=== PATIENT | female | born 1960 ===

== ENCOUNTER → 2017-11-24 | Outpatient (CLI) | payer BC ==
--- NOTE | 2017-11-25 22:37 | RADIOLOGY REPORT (SQ) ---
EXAM DESCRIPTION: MRI LT LOWER EXTREMITY COMBO COMPLETED DATE/TIME: 11/24/2017 10:20 pm REASON FOR STUDY: PAIN IN LEFT ANKLE AND JOINTS OF LEFT FOOT M25.572 PAIN IN LEFT ANKLE AND JOINTS OF LEFT FOOT COMPARISON: Weight-bearing ankle radiographs 11/21/2017. TECHNIQUE: Left ankle images acquired and stored on PACS. Multiplanar images include fat sensitive s equences as T1, fluid sensitive sequences as FST2/STIR, cartilage sensitive sequences as FSPD, and gr adient echo sequences. LIMITATIONS: Slightly limited by non orthogonal scanning through the ankle/foot. FINDINGS: BONE MARROW: Abnormal. Marrow edema and enhancement is present throughout the anterior ca lcaneus as well as in the cuboid, lateral and middle cuneiforms. Mild edema is also suggested in the 2nd metatarsal proximally. EFFUSIONS: No large effusion. Mild fluid in the calcaneocuboid articulation. OSSEOUS ARTICULATIONS: Midfoot multi joint arthropathy. Most pronounced along the cuboid articulatio ns. There is potentially some widening along the middle and lateral cuneiform articulation. TALAR DOME AND TIBIAL PLAFOND: No gross talar dome lesion. Slight superolateral mortise widening. ACHILLES TENDON: Mild tendinosis and enthesophyte formation along insertion. TIBIALIS ANTERIOR TENDON: Intact without edema at the 1st MT attachment. TIBIALIS POSTERIOR TENDON: Normal morphology and no edema at the navicular attachment. No tendon kovacs th fluid. FLEXOR HALLUCIS LONGUS AND FLEXOR DIGITORUM TENDONS: Normal morphology and no tendon sheath fluid. No edema of the os trigonum. PERONEUS LONGUS AND BREVIS TENDON: Normal morphology and no tendon sheath fluid. No subluxation. ATFL, CFL, PTFL: No gross disruption. DELTOID LIGAMENT: No gross disruption. TARSAL TUNNEL: No masses. No muscle atrophy. SINUS TARSI: Replaced fat signal. Likely reflecting sinus tarsi syndrome. PLANTAR FASCIA: Mild calcaneal bone spur. Slight thickening in the proximal plantar fascia but no ed joselyn. ADJACENT SOFT TISSUES: Dorsal subcutaneous edema. OTHER: No other significant finding. IMPRESSION: 1. Midfoot arthropathy, question neuropathy. No overt tendon disruption. Probable sin us tarsi syndrome. TECHNICAL DOCUMENTATION: JOB ID: [id number] [employer]- All Rights Reserved Reading location - IP/workstation name: [email or web address]
== END ==
LOC: RAD 20:00
PROVIDERS: ATTEND Orthopaedic Surgery
DX: M25.572 Pain in left ankle and joints of left foot (principal); M25.472 Effusion, left ankle
CPT/HCPCS: 82565

== ENCOUNTER → 2017-11-28 | Outpatient (CLI) | payer BC ==
--- NOTE | 2017-11-28 15:25 | RADIOLOGY REPORT (SQ) ---
EXAM DESCRIPTION: VENOUS UNILATERAL LOWER COMPLETED DATE/TIME: 11/28/2017 3:15 pm REASON FOR STUDY: LLE PAIN M79.662 PAIN IN LEFT LOWER LEG COMPARISON: None. TECHNIQUE: Dynamic and static torres scale and color images acquired of the left leg venous system. Se lected spectral images acquired with additional compression and augmentation maneuvers. The contralat eral common femoral vein and saphenofemoral junction were also imaged. Images stored on PACS. LIMITATIONS: None. FINDINGS: COMMON FEMORAL: Normal phasicity, compression and augmentation. No visualized echogenic ma terial on torres scale. No defects on color images. FEMORAL: Normal compression and augmentation. No visualized echogenic material on torres scale. No defe cts on color images. POPLITEAL: Normal compression, augmentation. No visualized echogenic material on torres scale. No defec ts on color images. CALF VESSELS: Normal compression, augmentation. No visualized echogenic material on torres scale. No de fects on color images. GSV and SSV: Normal compression, augmentation. No visualized echogenic material on torres scale. No def ects on color images. ANY DEEP VENOUS INSUFFICIENCY: Not evaluated. ANY EVIDENCE OF POPLITEAL CYST: No. OTHER: No other significant finding. CONTRALATERAL COMMON FEMORAL VEIN AND SAPHENOFEMORAL JUNCTION: Normal phasicity, compression and augmentation. No visualized echogenic material on torres scale. No de fects on color images. IMPRESSION: NO EVIDENCE DVT OR SVT IN THE LEFT LEG. TECHNICAL DOCUMENTATION: JOB ID: [id number] [employer]- All Rights Reserved Reading location - IP/workstation name: [email or web address]
== END ==
LOC: SP 13:39
PROVIDERS: ATTEND Orthopaedic Surgery
DX: M79.662 Pain in left lower leg (principal)
CPT/HCPCS: 93971